=== PATIENT | male | born 1970 | race Caucasian/White ===

== ENCOUNTER → 2021-02-02 | Outpatient (CLI) | payer BC ==
--- NOTE | 2021-02-02 14:12 | KCIC ---
EXAM: 3 views right foot DATE: 02/02/2021 10:32 AM INDICATION: Reason: Rt foot pain for 5 days. Pain medial aspect, swelling. / Spl. Instructions: / Il story: . COMPARISON: No Prior FINDINGS: No evidence of acute fracture or dislocation. Joint spaces are preserved without significant degenera tive/proliferative change. Calcaneal enthesophytes. Mild forefoot soft tissue swelling. IMPRESSION: Mild forefoot soft tissue swelling. Electronically signed by: Magdiel Darenll MD (02/02/2021 2:10 PM) RAMAN
== END ==
LOC: KCIC 10:21
PROVIDERS: ATTEND Family Medicine
DX: M79.89 Other specified soft tissue disorders (principal); M77.31 Calcaneal spur, right foot
CPT/HCPCS: 73630